=== PATIENT | female | born 1990 | race Two or more races ===

== ENCOUNTER → 2025-01-14 | Outpatient (CLI) | payer OTHER, SELFPAY ==
[2025-01-14 12:06] LABS: Collection Type, Urine Clean Catch
[2025-01-14 12:23] LABS: Basophils # (Auto) 0.1 Thou/mm3 (0.0-0.2); Basophils % (Auto) 1 % (0-2.5); Eosinophils # (Auto) 0.5 Thou/mm3 (0.0-0.5); Eosinophils % (Auto) 7 % (0-10); Hematocrit 37.4 % (36.0-46.0); Hemoglobin 11.7 g/dL (12.0-16.0); Immature Granulocytes % (Auto) 0 % (0-0); Immature Granulocytes Auto 0.02 Thou/mm3 (0.00-0.00); Lymphocytes # (Auto) 2.7 Thou/mm3 (1.0-4.8); Lymphocytes % (Auto) 34 % (10-50); Mean Corpuscular HGB Conc 31.3 g/dl (31.0-37.0); Mean Corpuscular Volume 77 fL (80-100); Monocytes # (Auto) 0.5 Thou/mm3 (0.0-0.8); Monocytes % (Auto) 6 % (0-12); Neutrophils # (Auto) 4.1 Thou/mm3 (1.8-7.7); Neutrophils % (Auto) 52 % (37-80); Nucleated Red Blood Cell % 0 /100 WBC (0); Platelet Count 237 Thou/mm3 (140-440); Red Blood Count 4.87 Miln/mm3 (4.00-5.20); White Blood Count 7.9 Thou/mm3 (3.6-11.0)
[2025-01-14 12:37] LABS: Bilirubin,Urine Negative (Negative); Blood,Urine 3+ (Negative); Clarity,Urine Clear (Clear/Hazy); Color,Urine Yellow (Lt Yel-Yel); Glucose, Urine Negative (Negative); Ketones,Urine Negative (Negative); Leukocyte Esterase,Urine Positive (Negative); Nitrite,Urine Negative (Negative); Protein,Urine Negative (Neg - Trace); RBC,Urine 842 /hpf (0-3); Specific Gravity,Urine 1.019 (1.001-1.035); Squamous Epithelial Cell,Urine 1 /hpf (0-5); Urobilinogen,Urine Negative mg/dL (0.0-1.0); WBC,Urine 13 /hpf (0-5)
[2025-01-14 12:42] LABS: Glucose Estimated Average 105 mg/dL (80-131); Hemoglobin A1C 5.3 % Hgb (4.8-6.0)
[2025-01-14 12:54] LABS: Alanine Aminotransferase 17 U/L (10-49); Albumin, Serum 4.3 gm/dL (3.5-5.0); Albumin/Globulin Ratio 1.7 (1.2-2.2); Alkaline Phosphatase 60 U/L (46-116); Anion Gap 9 (7-16); Aspartate Amino Transferase 19 U/L (0-34); BUN/Creatinine Ratio 15 Ratio (12-20); Bilirubin,Total 0.4 mg/dL (0.3-1.2); Blood Urea Nitrogen 12 mg/dL (9-23); Calcium 9.5 mg/dL (8.3-10.6); Calcium (Corrected) 9.5 mg/dL (8.5-10.1); Carbon Dioxide 26.6 mMol/L (20.0-31.0); Cardiac Risk Estimate 3.2 RATIO (3.7-5.6); Chloride 102 mMol/L (98-107); Cholesterol 132 mg/dL (132-200); Creatinine (Component) 0.8 mg/dL (0.6-1.3); Globulin 2.5 gm/dL (2.3-3.5); Glucose 80 mg/dL (74-106); HDL Cholesterol 41 mg/dL (40-60); LDL Cholesterol,Calculated 65 mg/dL (0-130); Osmolality,Calculated 274 (275-295); Potassium 4.1 mMol/L (3.4-5.1); Sodium 138 mMol/L (136-145); Thyroid Stimulating Hormone 0.99 uIU/mL (0.55-4.78); Total Protein 6.8 gm/dL (5.7-8.2); Triglycerides 132 mg/dL (30-150); Uric Acid 4.5 mg/dL (3.1-7.8); eGFR > 60 See Note
[2025-01-14 12:55] LABS: Ferritin 3 ng/mL (7.3-270.7); Iron 30 mcg/dL (50-170)
[2025-01-15 03:59] LABS: Vitamin B12 272 pg/mL (211-911); Vitamin D 25 Hydroxy Total 51.5 ng/mL (7.3-40.2)
== END | disposition home or self-care (01) ==
PROVIDERS: PCP Internal Medicine; Referring Provider Internal Medicine; Visit Provider Internal Medicine
DX: Z00.00 Encounter for general adult medical examination without abnormal findings (principal)
CPT/HCPCS: 36415; 80053; 80061; 81001; 82306; 82607; 82728; 83036; 83540; 84443; 84550; 85025

== ENCOUNTER → 2025-01-14 | Outpatient (CLI) | payer OTHER, SELFPAY ==
--- NOTE | 2025-01-14 13:36 | XR_ITS ---
Examination: Shoulder,left, 3 views Technique: Shoulder AP internal rotation, AP external rotation, Y view shoulder, 3 views Exam date and time :January 14, 2025 1354 hours INDICATIONS: Lifting injury to the shoulder one month ago, shoulder pain. FINDINGS: No shoulder fracture or dislocation 3 mm AC joint offset, age indeterminate IMPRESSION: 3 mm AC joint offset, clinical correlation advised
== END | disposition home or self-care (01) ==
LOC: SDIM 13:28
PROVIDERS: PCP Internal Medicine; Referring Provider Internal Medicine; Visit Provider Internal Medicine
DX: S49.92XA Unspecified injury of left shoulder and upper arm, initial encounter (principal); X58.XXXA Exposure to other specified factors, initial encounter
CPT/HCPCS: 73030

== ENCOUNTER 2025-01-21 11:04 | Outpatient (AMB) | payer OTHER, SELFPAY ==
[2025-01-21 11:14] VITALS: BP 113/79; PULSE 90; RESP 18; TEMP 36.2; O2SAT 97; BMI 18.1
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
== END 2025-01-21 11:36 | disposition home or self-care (01) ==
LOC: HODSRG 11:04
PROVIDERS: PCP Internal Medicine; Referring Provider Internal Medicine; Supervising Provider Orthopaedic Surgery Adult Reconstructive Orthopaedic Surgery; Visit Provider Orthopaedic Surgery Adult Reconstructive Orthopaedic Surgery
DX: M54.12 Radiculopathy, cervical region (principal); M25.512 Pain in left shoulder
CPT/HCPCS: 99213; G0463

== ENCOUNTER → 2025-02-02 | Outpatient (CLI) | payer OTHER, SELFPAY ==
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
== END | disposition home or self-care (01) ==
PROVIDERS: Referring Provider Orthopaedic Surgery Adult Reconstructive Orthopaedic Surgery; Visit Provider Orthopaedic Surgery Adult Reconstructive Orthopaedic Surgery
DX: M48.02 Spinal stenosis, cervical region (principal)
CPT/HCPCS: 72141

== ENCOUNTER 2025-02-04 09:03 | Outpatient (RCR) | payer OTHER, SELFPAY ==
[2025-01-28 08:58] VITALS: BMI 23.9
[2025-01-28 09:00] VITALS: BP 95/61; PULSE 81; RESP 18; TEMP 36.4; O2SAT 96
[2025-01-28] MEDS: ferumoxytoL (NON-ESRD) 510 MG in SODIUM CHLORIDE 0.9% 100 ML 234 MG IV (09:41)
[2025-01-28 10:55] VITALS: BP 105/67; PULSE 72; RESP 18; TEMP 36.8; O2SAT 100
[2025-02-04 09:15] VITALS: BP 103/65; PULSE 81; RESP 14; TEMP 36.6; O2SAT 100; BMI 23.8
[2025-02-04] MEDS: ferumoxytoL (NON-ESRD) 510 MG in SODIUM CHLORIDE 0.9% 100 ML 234 MG IV (09:59)
[2025-02-04 10:35] VITALS: BP 102/69; PULSE 77; RESP 14; TEMP 36.1; O2SAT 100
== END 2025-02-10 23:59 | disposition home or self-care (01) ==
LOC: SFLEX 09:03
PROVIDERS: PCP Internal Medicine; Referring Provider Internal Medicine; Visit Provider Internal Medicine
PROC: (CPT 96365; principal; 2025-01-28 08:00)
DX: D50.8 Other iron deficiency anemias (principal)
CPT/HCPCS: 96365; 96366; J7050; Q0138

== ENCOUNTER 2025-04-12 11:00 | Outpatient (RCR) | payer OTHER, SELFPAY ==
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
--- NOTE | 2025-04-01 15:17 | PT.ODAYNRPT ---
PT Outpatient Daily Note OP Daily Note Outpatient Physical Therapy Treatment Date: 04/01/25 Visit Reasons: left shoulder pain Subjective: Pt points to the L scapula as site of pain today. The L A/C joint area isn't hurting today. Objective: See F/S for therex MT: STM L medial border of scapula, manual cervical traction and suboccipital release x15' Assessment: Cervical extension provokes the L scapula pain. Moderate TTP of that area. Pt has decreased kyphosis of T/S and stiffness posterior to anterior. Plan: Continue per POC Length of Time (minutes) of Treatment: 30 Minutes Procedure Charges Therapeutic Exercise 30 minutes: Yes
--- NOTE | 2025-04-05 18:24 | PTNOTE_ITS ---
PT Outpatient Daily Note OP Daily Note Outpatient Physical Therapy Treatment Date: 04/05/25 Visit Reasons: left shoulder pain Subjective: Pt points to the L scapula as site of pain today. The L A/C joint area isn't hurting today at rest but with reaching OH it does. Objective: See F/S for therex MT: manual cervical traction and suboccipital release, K-tape L A/C joint x15' total Mechanical traction C/S x7' at 10 lbs Assessment: Cervical extension provokes the L scapula pain. Moderate TTP of that area. Pt has decreased kyphosis of T/S and stiffness posterior to anterior. 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
--- NOTE | 2025-04-06 09:10 | PTNOTE_ITS ---
PT Outpatient Daily Note OP Daily Note Outpatient Physical Therapy Treatment Date: 04/06/25 Visit Reasons: left shoulder pain Subjective: Pt reports the pain around the L scapula medial border was gone after last visit Objective: See F/S for therex MT: manual cervical traction and suboccipital release, HVT to C1-2 to the R x1, x15' total Mechanical traction C/S x7' at 10 lbs MHP: C/S and L A/C joint x5' Assessment: Cervical extension provokes the L scapula pain which is likely referred pain. Good response to mechanical traction to lessen pain referral. Plan: Continue per POC Length of Time (minutes) of Treatment: 30 Minutes Procedure Charges Therapeutic Exercise 15 minutes: Yes Manual Perforating Machine Operator 15 minutes: Yes
--- NOTE | 2025-04-12 12:11 | PT.ODAYNRPT ---
PT Outpatient Daily Note OP Daily Note Outpatient Physical Therapy Treatment Date: 04/12/25 Visit Reasons: left shoulder pain Subjective: Pt reports the pain around the L scapula medial border was gone Objective: See F/S for therex MT: manual cervical traction and suboccipital release, HVT to C1-2 to the L x1, x7' total Mechanical traction C/S x7' at 10 lbs Assessment: Cervical extension provokes the L scapula pain which is likely referred pain. Good response to mechanical traction to lessen pain referral. Plan: Continue per POC Length of Time (minutes) of Treatment: 30 Minutes Procedure Charges Therapeutic Exercise 30 minutes: Yes
== END 2025-04-12 23:59 | disposition home or self-care (01) ==
LOC: CPTX 11:00
PROVIDERS: PCP Internal Medicine; Referring Provider Internal Medicine; Visit Provider Internal Medicine
DX: M54.12 Radiculopathy, cervical region (principal)
CPT/HCPCS: 97110; 97140; 97162

== ENCOUNTER 2025-04-20 09:32 | Emergency (ER) | payer OTHER, SELFPAY ==
[2025-04-20 09:32] VITALS: BMI 23.3
[2025-04-20 09:42] VITALS: BP 102/69; PULSE 85; RESP 18; TEMP 36.5; O2SAT 97
--- NOTE | 2025-04-20 09:45 | PD.EDADULT ---
ED General RME/HPI General Chief complaint: Abdominal Pain Stated complaint: ABD PAIN, NAUSEA Time Seen by Provider: 04/20/25 09:33 Arrival date/time: 04/20/25 09:32 RME / HPI RME / HPI narrative: see [facility] [place] Related Data Home Medications ?Medication ?Instructions ?Recorded ?Confirmed phentermine 15 mg capsule 15 mg PO QDAY 01/21/25 01/28/25 [id number]-[id number]-[id number] 250 1 tab PO Q6H PRN pain 01/28/25 01/28/25 mg-250 mg-65 mg tablet (Excedrin Migraine) Previous Rx's ?Medication ?Instructions ?Recorded gabapentin 300 mg capsule 300 mg PO QHS #60 caps 01/29/25 famotidine 40 mg tablet 40 mg PO BID #60 tabs 04/20/25 ondansetron 8 mg disintegrating 8 mg PO Q8H PRN nausea and 04/20/25 tablet vomiting #30 tabs Allergies Allergy/AdvReac Type Severity Reaction Status Date / Time latex Allergy Mild SKIN PEELS Verified 04/20/25 09:35 Review of Systems Review of Systems Systems Reviewed: All systems reviewed, normal except as documented ED Exam Narrative Physical exam: Physical Exam GENERAL: NAD, AAOx3 HEENT: Moist mucosa. Eyes open, symmetrical, & clear CARDIO: Heart RRR, no obvious murmurs PULM: No noted coughing/dyspnea CTA B/L, no R/W/R GI: Abdomen soft, nondistended, no pain on palpation. BSx4 SKIN/MSK/EXT: No wounds/rashes/edema/amputations, no pain on palpation. Pedal pulses present B/L NEURO: AAOx3, no focal neuro deficits, able to move all 4 extremities Course Course Course Narrative: see [facility] [place] Quality Measures none Orders Category Date Time Status Famotidine [Pepcid] Med 04/20/25 09:41 Discontinued 40 mg PO X1 ONE Ondansetron Odt [Zofran Odt] Med 04/20/25 09:40 Discontinued 4 mg PO X1 ONE Vital Signs Vital signs: Vital Signs Temperature 97.7 F 04/20/25 09:42 Pulse Rate 85 04/20/25 09:42 Respiratory Rate 18 04/20/25 09:42 Blood Pressure 102/69 04/20/25 09:42 Pulse Oximetry (%) 97 04/20/25 09:42 Oxygen Delivery Method Room Air 04/20/25 09:42 Discharge Plan Plan Patient Disposition: HOME (Self Care) Prescriptions/Referrals Prescriptions/Med Rec: New ondansetron 8 mg tablet,disintegrating 8 mg PO Q8H PRN (Reason: nausea and vomiting) Qty: 30 0RF famotidine 40 mg tablet 40 mg PO BID Qty: 60 0RF No Action phentermine 15 mg capsule 15 mg PO QDAY Rx Instructions: must administer 2 hours after breakfast gabapentin 300 mg capsule 300 mg PO QHS Qty: 60 1RF Excedrin Migraine 250-250-65 mg tablet 1 tab PO Q6H PRN (Reason: pain) Problem List Clinical Impression: Nausea Patient/Caregiver Discharge Instructions Additional Instructions: Follow up with your private doctor if symptom do not improve You have been prescribed zofran and pepcid for your nausea, please take these medications as prescribed Should symptoms recur or worsen patient is instructed to return to the ED. Print Language: Bolivian Stand Alone Forms: Lawanda Award Info., Patient Portal Info Letter MDM Narrative [facility] [place] hospital course: 35 y/o F who presented to the ED due to nausea after starting her menses. She states she her pain is adequately controlled after taking some medications at home. 0948: vitals reviewed, ordered Zofran and pepcid and prescriptions sent to her pharmacy. Patient can be safely discharged with instructions if symptoms recur or worsen can return to the ED. Clinical Information Provided by patient Medical Records Reviewed None Medication Administration(s) Medication Administration History Discontinued Medications Famotidine (Famotidine 20 Mg Tablet) 40 mg PO X1 ONE Stop: 04/20/25 09:42 Last Admin: 04/20/25 09:47 Dose: 40 mg Documented By: TERI Ondansetron HCl (Ondansetron Odt 4 Mg Tabrap) 4 mg PO X1 ONE; Protocol Stop: 04/20/25 09:41 Last Admin: 04/20/25 09:47 Dose: 4 mg Documented By: TERI
[2025-04-20] MEDS: FAMOTIDINE 20 MG TABLET 40 MG PO (09:47)
[2025-04-20] MEDS: ONDANSETRON ODT 4 MG TABRAP PO (09:47)
== END 2025-04-20 09:59 | disposition home or self-care (01) ==
LOC: SERX 09:56
PROVIDERS: Emergency Provider Family Medicine; PCP Internal Medicine
DX: R11.2 Nausea with vomiting, unspecified (principal)
CPT/HCPCS: 99283; Q0162; A9270

== ENCOUNTER → 2025-05-20 | Outpatient (CLI) | payer OTHER, SELFPAY ==
[2025-05-20 14:28] LABS: Basophils # (Auto) 0.1 Thou/mm3 (0.0-0.2); Basophils % (Auto) 1 % (0-2.5); Eosinophils # (Auto) 0.3 Thou/mm3 (0.0-0.5); Eosinophils % (Auto) 3 % (0-10); Hematocrit 39.7 % (36.0-46.0); Hemoglobin 13.2 g/dL (12.0-16.0); Immature Granulocytes Auto 0.04 Thou/mm3 (0.00-0.00); Lymphocytes # (Auto) 3.0 Thou/mm3 (1.0-4.8); Lymphocytes % (Auto) 31 % (10-50); Mean Corpuscular HGB Conc 33.2 g/dl (31.0-37.0); Mean Corpuscular Hemoglobin 27.9 pg (25.0-35.0); Mean Corpuscular Volume 84 fL (80-100); Monocytes # (Auto) 0.5 Thou/mm3 (0.0-0.8); Monocytes % (Auto) 5 % (0-12); Neutrophils # (Auto) 6.1 Thou/mm3 (1.8-7.7); Neutrophils % (Auto) 61 % (37-80); Nucleated Red Blood Cell # 0.00 Thou/mm3 (0.00-0.00); Nucleated Red Blood Cell % 0 /100 WBC (0); Platelet Count 216 Thou/mm3 (140-440); RDW Standard Deviation 40.6 fL (36.4-46.3); Red Blood Count 4.73 Miln/mm3 (4.00-5.20); White Blood Count 9.9 Thou/mm3 (3.6-11.0)
[2025-05-20 14:49] LABS: Vitamin B12 595 pg/mL (211-911)
[2025-05-20 14:50] LABS: Ferritin 86 ng/mL (7.3-270.7)
== END | disposition home or self-care (01) ==
LOC: COPL 13:12
PROVIDERS: PCP Internal Medicine; Referring Provider Internal Medicine; Visit Provider Internal Medicine
DX: D50.8 Other iron deficiency anemias (principal); D51.9 Vitamin B12 deficiency anemia, unspecified
CPT/HCPCS: 36415; 82607; 82728; 85025